=== PATIENT | female | born 1970 | race Caucasian/White ===

== ENCOUNTER 2018-11-30 13:00 | Emergency (ER) | payer OTHER ==
[~2018-11-30] VITALS: Ht 160 cm; Wt 55.3 kg
[2018-11-30] MEDS ORDERED: PREDNISONE 20 M20 MG PO (13:02)
[2018-11-30] MEDS ORDERED: TESSALON PERLE100 MG PO (13:02)
[2018-11-30] MEDS ORDERED: VENTOLIN HFA 1818 GM INH (13:02)
[2018-11-30] MEDS ORDERED: DOXYCYCLINE 10100 MG PO (13:02)
[2018-11-30] MEDS ORDERED: CARVEDILOL12.5 MG PO (13:07)
[2018-11-30] MEDS ORDERED: NORVASC2.5 MG PO (13:07)
[2018-11-30] MEDS ORDERED: BACTRIM DS TAB1 EACH PO (14:09)
[2018-11-30 14:30] VITALS: BP 128/80
== END 2018-11-30 14:25 | disposition home or self-care (01) ==
LOC: ER 13:00
DX: H60.01 Abscess of right external ear (principal)